=== PATIENT | female | born 1985 | race Caucasian/White ===

== ENCOUNTER 2023-02-25 17:52 | Emergency (ER) | payer BC ==
[~2023-02-25] VITALS: Ht 165.1 cm; Wt 66.0 kg
[2023-02-25] VITALS (12 sets, daily range): BP systolic 99–120; BP diastolic 64–84
[2023-02-25 19:13] LABS: BASO% 0.1 % (0-3); EOS% 0.2 % (0-8); HEMATOCRIT 39.9 % (37.0-47.0); HEMOGLOBIN 13.5 g/dl (12.0-16.0); IMMATURE GRANULOCYTES 0.3 % (0.0-5.0); LYMPH% 9.2 % (15-41); MEAN CELL VOLUME 97.8 fL CALC (80.0-100.0); MEAN CORPUSCULAR HGB 33.1 pG CALC (26.0-32.0); MEAN CORPUSCULAR HGB CONC 33.8 g/dL CAL (32.0-36.0); MONO% 7.3 % (2-13); NEUT# 11.9 thou/uL (2.00-7.15); NEUT% 82.9 % (42-76); RED BLOOD COUNT 4.08 mill/uL (4.20-5.60); RED CELL DISTRI WIDTH 12.5 % (11.5-15.5)
[2023-02-25 19:24] LABS: ANION GAP 10 (6-22 (CALC)); BUN 14 mg/dL (7-17); BUN/CREATININE RATIO 24 (12-20 (CALC)); CARBON DIOXIDE 27 mmol/l (22-30); CHLORIDE 103 mmol/l (95-108); CREATININE 0.6 mg/dL (0.5-1.0); GFR FOR AFR.AMER. > 60 ML/MIN (>=60 (CALC)); GFR OTHER RACES > 60 ML/MIN (>=60 (CALC)); POTASSIUM 3.8 mmol/l (3.5-5.1); SODIUM 137 mmol/l (137-146)
[2023-02-25] MEDS ORDERED: AMOXICILLIN500 MG PO (20:17)
[2023-02-25] MEDS ORDERED: DIFLUCAN150 MG PO (20:56)
== END 2023-02-25 20:55 | disposition home or self-care (01) | DRG 153 ==
LOC: ED 17:52
PROVIDERS: Family Medicine
DX: J02.0 Streptococcal pharyngitis (principal); Z20.822 Contact with and (suspected) exposure to COVID-19